=== PATIENT | male | born 1995 | race Caucasian/White ===

== ENCOUNTER 2023-01-13 05:33 | Emergency (ER) | payer OTHER ==
[~2023-01-13] VITALS: Ht 157.5 cm; Wt 113.4 kg
[2023-01-13 05:46] VITALS: BP 129/84; PULSE 56; RESP 20; TEMP 98; O2SAT 98
--- NOTE | 2023-01-13 05:53 | NUR ---
pt went to the lobby
--- NOTE | 2023-01-13 06:45 | NUR ---
27 YO M BIB SELF C/O MID ABDOMINAL PAIN X 1 WEEK. + N/V X 1 DAY. PT STATES VOMITED X5 THIS AM. PT STATES PAIN WOKE HIM FROM SLEEP. AXO4. STATES PAIN 8/10. SITTING IN BEDSIDE CHAIR. CALL LIGHT WITHIN REACH. NKDA NO MED HX
[2023-01-13] MEDS ORDERED: ALUMINUM HYD/MAG/SIMETHICONE 30 ML UDC PO ONE (06:50)
[2023-01-13] MEDS ORDERED: FAMOTIDINE 20 MG TAB PO ONE (06:50)
[2023-01-13] MEDS ORDERED: ONDANSETRON 4 MG ODT PO ONE (06:50)
[2023-01-13 07:07] VITALS: BP 134/80; PULSE 55; RESP 14; O2SAT 99
--- NOTE | 2023-01-13 07:20 | NUR ---
REPORT RECEIVED FROM ALYSON SHAW. ASSUMED CARE AT THIS TIME
--- NOTE | 2023-01-13 07:22 | NUR ---
pt awake and at rest. states pain relief. hob positioned per comfort
[2023-01-13 08:14] LABS: ALBUMIN 4.7 g/dL (3.4-5.0); CARBON DIOXIDE 29.4 mmol/L (21-32); CREATININE 1.2 mg/dL (0.6-1.3); POTASSIUM 4.4 mmol/L (3.5-5.1); TOTAL BILIRUBIN 0.7 mg/dL (0.0-1.0)
--- NOTE | 2023-01-13 08:29 | NUR ---
pt c/o new nausea onset. MADE AWARE
[2023-01-13 08:36] LABS: BASOPHILS % (AUTO) 0.2 % (0.0-2.0); EOSINOPHILS % (AUTO) 0.1 % (0.0-4.0); HEMATOCRIT 49.4 % (36-52); HEMOGLOBIN 17.1 g/dL (12.0-18.0); LYMPHOCYTES # (AUTO) 1.5 K/uL (2.0-11.5); MEAN CORPUSCULAR HEMOGLOBIN 30 pg (27-31); MEAN CORPUSCULAR HGB CONC 35 g/dL (33-37); MONOCYTES # (AUTO) 1.1 K/uL (0.8-1.0); MONOCYTES % (AUTO) 6.3 % (1.7-9.3); NEUTROPHILS # (AUTO) 15.1 K/uL (1.8-7.7); PLATELET COUNT (AUTO) 304 K/uL (140-450); RED BLOOD CELL COUNT(AUTO) 5.74 MIL/uL (4.20-6.10); RED CELL DISTRIBUTION WIDTH 13.9 % (11.6-13.7); WHITE BLOOD COUNT (AUTO) 17.8 K/uL (4.8-10.8)
[2023-01-13] MEDS ORDERED: METOCLOPRAMIDE 10 MG TAB PO ONE (08:40)
[2023-01-13 08:54] LABS: LYMPHOCYTES % (AUTO) 8.3 % (20.5-51.1); NEUTROPHILS % (AUTO) 85.1 % (42.2-75.2)
[2023-01-13] MEDS ORDERED: ONDA-188 SL (09:00)
[2023-01-13] MEDS ORDERED: OMEP40EC23 PO (09:00)
[2023-01-13] MEDS ORDERED: FAMO-92 PO (09:00)
[2023-01-13] MEDS ORDERED: SUCR1TAB35 PO (09:00)
--- NOTE | 2023-01-13 09:06 | NUR ---
Patient discharged with v/s stable. Written and verbal after care instructions FOR GASTRITIS given and explained. Patient alert, oriented and verbalized understanding of instructions. Ambulatory with steady gait. All questions addressed prior to discharge. ID band removed. Patient advised to follow up with PMD. Rx of PEPCID,OMEPRAZOLE,ZOFRAN ODT AND CARAFATE given. Opportunity to ask questions provided and answered. COPY OF LABS PROVIDED
--- NOTE | 2023-01-13 10:15 | NUR ---
The patient's care was reviewed and supervised by SKIP PINEDA RN.
== END 2023-01-13 09:06 | disposition home or self-care (01) ==
LOC: MED 05:33
DX: K29.70 Gastritis, unspecified, without bleeding (principal); R11.2 Nausea with vomiting, unspecified; F12.90 Cannabis use, unspecified, uncomplicated; Z79.899 Other long term (current) drug therapy
CPT/HCPCS: 36415; 80053; 81002; 83690; 85025; 99284; J8597; Q0162

== ENCOUNTER 2023-03-18 04:25 | Emergency (ER) | payer OTHER ==
[~2023-03-18] VITALS: Ht 188 cm; Wt 113.4 kg
[~2023-03-18 04:25] MED LIST: FAMO-92 PO; OMEP40EC23 PO; ONDA-188 SL; SUCR1TAB35 PO
[2023-03-18 04:33] VITALS: BP 125/72; PULSE 64; RESP 16; TEMP 97.4; O2SAT 97
[2023-03-18] MEDS ORDERED: ALUMINUM HYD/MAG/SIMETHICONE 30 ML UDC PO ONE (05:10)
[2023-03-18] MEDS ORDERED: FAMOTIDINE 20 MG TAB PO ONE (05:10)
[2023-03-18 05:34] LABS: BASOPHILS % (AUTO) 0.2 % (0.0-2.0); EOSINOPHILS % (AUTO) 0.1 % (0.0-4.0); HEMATOCRIT 46.8 % (36-52); HEMOGLOBIN 16.2 g/dL (12.0-18.0); LYMPHOCYTES # (AUTO) 1.3 K/uL (2.0-11.5); LYMPHOCYTES % (AUTO) 6.3 % (20.5-51.1); MEAN CORPUSCULAR HEMOGLOBIN 30 pg (27-31); MEAN CORPUSCULAR HGB CONC 35 g/dL (33-37); MEAN CORPUSCULAR VOLUME 86.7 fL (80-94); MONOCYTES # (AUTO) 0.9 K/uL (0.8-1.0); MONOCYTES % (AUTO) 4.5 % (1.7-9.3); NEUTROPHILS # (AUTO) 17.6 K/uL (1.8-7.7); NEUTROPHILS % (AUTO) 88.9 % (42.2-75.2); PLATELET COUNT (AUTO) 298 K/uL (140-450); WHITE BLOOD COUNT (AUTO) 19.8 K/uL (4.8-10.8)
[2023-03-18] MEDS ORDERED: MORPHINE SULFATE 4 MG/ML SYR IVP ONE (05:40)
[2023-03-18] MEDS ORDERED: ONDANSETRON 4 MG/2 ML VIAL IVP ONE (05:40)
[2023-03-18] MEDS ORDERED: ONDA-188 PO (05:43)
[2023-03-18] MEDS ORDERED: SUCR1TAB35 PO (05:43)
[2023-03-18] MEDS ORDERED: OMEP40EC23 PO (05:43)
[2023-03-18] MEDS ORDERED: FAMO-90 PO (05:43)
[2023-03-18 05:44] LABS: ALBUMIN 4.3 g/dL (3.4-5.0); ANION GAP 13.3 (8-16); CALCIUM 9.6 mg/dL (8.5-10.1); CARBON DIOXIDE 26.5 mmol/L (21-32); CREATININE 1.2 mg/dL (0.6-1.3); POTASSIUM 3.8 mmol/L (3.5-5.1); TOTAL BILIRUBIN 0.5 mg/dL (0.0-1.0); TOTAL PROTEIN, SERUM 7.8 g/dL (6.4-8.2)
[2023-03-18 06:08] VITALS: BP 129/81; PULSE 77; RESP 17; TEMP 98; O2SAT 97
== END 2023-03-18 06:08 | disposition home or self-care (01) ==
LOC: MED 04:25
DX: K29.70 Gastritis, unspecified, without bleeding (principal); D72.829 Elevated white blood cell count, unspecified; Z79.899 Other long term (current) drug therapy
CPT/HCPCS: 36415; 71045; 80053; 83690; 85025; 96374; 96375; 99284; J2270; J2405; Q0092

== ENCOUNTER 2023-12-10 18:22 | Emergency (ER) | payer OTHER ==
[~2023-12-10] VITALS: Ht 188 cm; Wt 104.3 kg
[~2023-12-10 18:22] MED LIST changes: +FAMO-90 PO; +ONDA-188 PO; +SUCR-3 PO; -SUCR1TAB35 PO
[2023-12-10 18:42] VITALS: BP 112/55; PULSE 55; RESP 18; TEMP 98.2; O2SAT 98
[2023-12-10] MEDS ORDERED: ACETAMINOPHEN EXTRA STRENGTH 500 MG TAB ONE (18:57)
[2023-12-10] MEDS: ACETAMINOPHEN EXTRA STRENGTH 500 MG TAB PO ONE (19:03)
[2023-12-10 21:15] VITALS: BP 110/57; PULSE 60; RESP 18; TEMP 98.3; O2SAT 98
[2023-12-10] MEDS ORDERED: NAPR-1704 PO (21:59)
== END 2023-12-10 22:11 | disposition home or self-care (01) ==
LOC: MED 18:22
DX: S43.101A Unspecified dislocation of right acromioclavicular joint, initial encounter (principal); S80.211A Abrasion, right knee, initial encounter; S50.311A Abrasion of right elbow, initial encounter; Z79.1 Long term (current) use of non-steroidal anti-inflammatories (NSAID); Z79.2 Long term (current) use of antibiotics; Z79.899 Other long term (current) drug therapy; V89.2XXA Person injured in unspecified motor-vehicle accident, traffic, initial encounter; Y93.55 Activity, bike riding; Y92.89 Other specified places as the place of occurrence of the external cause; Y99.8 Other external cause status
CPT/HCPCS: 72100; 73030; 73502; 73562; 73700; 99284

== ENCOUNTER 2023-12-29 19:48 | Emergency (ER) | payer OTHER ==
[~2023-12-29] VITALS: Ht 188 cm; Wt 106.1 kg
[~2023-12-29 19:48] MED LIST changes: +NAPR-1704 PO
[2023-12-29 19:52] VITALS: BP 125/70; PULSE 50; RESP 18; TEMP 97.6; O2SAT 98
[2023-12-29] MEDS ORDERED: OMEP40EC23 PO (20:23)
[2023-12-29] MEDS ORDERED: ONDA8TAB87 PO (20:23)
[2023-12-29] MEDS ORDERED: DICYCLOMINE HCL LIQUID 10 MG/5 ML UDC ONE ×2 (20:31)
[2023-12-29] MEDS ORDERED: ALUMINUM HYD/MAG/SIMETHICONE 30 ML UDC ONE ×2 (20:31)
[2023-12-29] MEDS: DICYCLOMINE HCL LIQUID 20 MG, ALUMINUM HYD/MAG/SIMETHICONE 30 ML, LIDOCAINE VISCOUS 2% ... PO ONE (20:35)
[2023-12-29] MEDS: ONDANSETRON 4 MG ODT PO ONE (20:35)
[2023-12-29 21:09] VITALS: BP 134/72; PULSE 80; RESP 20; TEMP 98; O2SAT 100
[2023-12-29] MEDS: KETOROLAC 60 MG/2 ML VIAL IM ONE (21:09)
== END 2023-12-29 21:09 | disposition home or self-care (01) ==
LOC: MED 19:48
DX: R10.13 Epigastric pain (principal); R11.2 Nausea with vomiting, unspecified; R03.0 Elevated blood-pressure reading, without diagnosis of hypertension; Z79.1 Long term (current) use of non-steroidal anti-inflammatories (NSAID); Z79.899 Other long term (current) drug therapy
CPT/HCPCS: 96372; 99284; J1885; Q0162